=== PATIENT | female | born 1995 | race Caucasian/White ===

== ENCOUNTER → 2023-03-03 | Outpatient (CLI) | payer OTHER | END | disposition home or self-care (01) | LOC: LAB 16:07 | PROVIDERS: ATTEND Preventive Medicine Preventive Medicine/Occupational Environmental Medicine | DX: S61.231A Puncture wound without foreign body of left index finger without damage to nail, initial encounter (principal); Z77.21 Contact with and (suspected) exposure to potentially hazardous body fluids; W46.1XXA Contact with contaminated hypodermic needle, initial encounter; Y93.89 Activity, other specified; Y92.89 Other specified places as the place of occurrence of the external cause; Y99.8 Other external cause status | CPT/HCPCS: 36415; 86703; 86706; 86803; 87340 ==

== ENCOUNTER → 2024-01-12 | Outpatient (CLI) | payer OTHER | END | disposition home or self-care (01) | LOC: LAB 10:29 | PROVIDERS: ATTEND Obstetrics & Gynecology | DX: N91.2 Amenorrhea, unspecified (principal) | CPT/HCPCS: 36415; 84144; 84702 ==

== ENCOUNTER → 2024-02-16 | Outpatient (CLI) | payer OTHER ==
[2024-02-16 11:32] LABS: Basophils # (auto) 0 10 ^3/uL (0-0.2); Basophils % (auto) 0.3 % (0.0-2.0); Eosinophils # (auto) 0 10 ^3/uL (0-0.8); Eosinophils % (auto) 0.2 % (0.0-7.0); Hematocrit 40.7 % (36.0-46.0); Lymphocytes # (auto) 1.7 10 ^3/uL (0.4-5.4); Lymphocytes % (auto) 16.8 % (10.0-50.0); Mean Corpuscular Hemoglobin 29.4 pg (28.0-32.0); Mean Corpuscular Hgb Conc. 34.4 g/dL (32.0-36.0); Mean Corpuscular Volume 85.3 fL (80.0-100.0); Monocytes # (auto) 0.6 10 ^3/uL (0-1.3); Monocytes % (auto) 5.8 % (0.0-12.0); Neutrophils # (auto) 7.9 10 ^3/uL (1.6-8.6); Neutrophils % (auto) 76.9 % (37.0-80.0); Platelet Count (auto) 275 10^3/uL (140-450); Red Blood Cells 4.77 10^6/uL (4.0-5.20); Red Cell Distribution Width 13.2 % (11.8-14.3); White Blood Cell 10.3 10^3/uL (4.4-10.8)
[2024-02-16 12:02] LABS: Amphetamine Screen, Urine Neg (NEGATIVE); Barbiturate Scree,Urine Neg (NEGATIVE); Benzodiazephine Screen, Urine Neg (NEGATIVE); Cannabinoid Screen, Urine Neg (NEGATIVE); Cocaine Screen, Urine Neg (NEGATIVE); Opiate Scree,Urine Neg (NEGATIVE); Phencyclidine Screen, Urine Neg (NEGATIVE)
[2024-02-17 08:06] LABS: RPR Non Reactive (Non Reactive)
[2024-02-17 21:06] LABS: Chlamydia Trachomatis, NAA Negative (Negative); Neisseria gonorrhoeae, NAA Negative (Negative)
== END | disposition home or self-care (01) ==
LOC: LAB 10:42
PROVIDERS: ATTEND Obstetrics & Gynecology
DX: Z31.430 Encounter of female for testing for genetic disease carrier status for procreative management (principal); Z34.80 Encounter for supervision of other normal pregnancy, unspecified trimester; Z20.09 Contact with and (suspected) exposure to other intestinal infectious diseases; N39.0 Urinary tract infection, site not specified
CPT/HCPCS: 36415; 80307; 83036; 84144; 84702; 85025; 86592; 86703; 86762; 86850; 86900; 86901; 87086; 87340

== ENCOUNTER → 2024-06-20 | Outpatient (CLI) | payer OTHER ==
[2024-06-20 06:53] LABS: Basophils # (auto) 0 10 ^3/uL (0-0.2); Basophils % (auto) 0.4 % (0.0-2.0); Eosinophils # (auto) 0.1 10 ^3/uL (0-0.8); Eosinophils % (auto) 0.8 % (0.0-7.0); Hematocrit 36.1 % (36.0-46.0); Lymphocytes # (auto) 1.6 10 ^3/uL (0.4-5.4); Lymphocytes % (auto) 18.4 % (10.0-50.0); Mean Corpuscular Hemoglobin 28.2 pg (28.0-32.0); Mean Corpuscular Hgb Conc. 33.4 g/dL (32.0-36.0); Mean Corpuscular Volume 84.6 fL (80.0-100.0); Monocytes # (auto) 0.7 10 ^3/uL (0-1.3); Monocytes % (auto) 7.6 % (0.0-12.0); Neutrophils # (auto) 6.4 10 ^3/uL (1.6-8.6); Neutrophils % (auto) 72.8 % (37.0-80.0); Platelet Count (auto) 197 10^3/uL (140-450); Red Blood Cells 4.26 10^6/uL (4.0-5.20); Red Cell Distribution Width 13.4 % (11.8-14.3); White Blood Cell 8.7 10^3/uL (4.4-10.8)
[2024-06-20 07:17] LABS: RUBELLA Positive
== END | disposition home or self-care (01) ==
LOC: LAB 06:12
PROVIDERS: ATTEND Obstetrics & Gynecology
DX: Z34.00 Encounter for supervision of normal first pregnancy, unspecified trimester (principal)
CPT/HCPCS: 36415; 82951; 83036; 85025; 86762; 87086

== ENCOUNTER → 2024-08-14 | Outpatient (CLI) | payer OTHER ==
[2024-08-14 11:14] LABS: Hematocrit 36.1 % (36.0-46.0); Hemoglobin 11.9 g/dL (12.2-16.2); Mean Corpuscular Hemoglobin 27.5 pg (28.0-32.0); Mean Corpuscular Volume 83.6 fL (80.0-100.0); Nucleated Red Blood Cells % 0.1 %
[2024-08-16 05:08] LABS: Chlamydia Trachomatis, NAA Negative (Negative); Neisseria gonorrhoeae, NAA Negative (Negative)
== END | disposition home or self-care (01) ==
LOC: LAB 11:03
PROVIDERS: ATTEND Obstetrics & Gynecology
DX: Z34.80 Encounter for supervision of other normal pregnancy, unspecified trimester (principal); Z3A.00 Weeks of gestation of pregnancy not specified
CPT/HCPCS: 36415; 85025; 86780

== ENCOUNTER 2024-09-03 03:04 | Inpatient (IN) | payer OTHER ==
[2024-09-01 11:00] LABS: Hematocrit 35.8 % (36.0-46.0); Hemoglobin 11.9 g/dL (12.2-16.2); Mean Corpuscular Hemoglobin 27.6 pg (28.0-32.0); Mean Corpuscular Volume 83.3 fL (80.0-100.0); Nucleated Red Blood Cells % 0.1 %
[2024-09-01 11:13] LABS: INR 0.92 (0.9-1.15); Partial Thromboplastin Time 26.0 SEC (24.5-34.5); Prothrombin Time 9.8 sec (9.3-11.8)
[2024-09-01 11:16] LABS: Alanine Aminotransferase 13 U/L (7-40); Albumin 3.9 g/dL (3.2-4.8); Alkaline Phosphatase 120 U/L (46-116); Anion Gap 9 (5-15); BUN/Creatinine Ratio 9.3 (10.0-20.0); Bilirubin, Total 0.6 mg/dL (0.2-1.0); Blood Urea Nitrogen 5 mg/dL (9-23); Calcium 9.8 mg/dL (8.7-10.4); Carbon Dioxide 24 mmol/L (20-31); Chloride 105 mmol/L (98-107); Glucose 74 mg/dL (74-106); Potassium 4.1 mmol/L (3.5-5.1); Sodium 138 mmol/L (136-145); Total Protein 6.0 g/dL (5.7-8.2)
[2024-09-01 11:42] LABS: Amphetamine Screen, Urine Neg (NEGATIVE); Barbiturate Scree,Urine Neg (NEGATIVE); Benzodiazephine Screen, Urine Neg (NEGATIVE); Cannabinoid Screen, Urine Neg (NEGATIVE); Cocaine Screen, Urine Neg (NEGATIVE); Opiate Scree,Urine Neg (NEGATIVE); Phencyclidine Screen, Urine Neg (NEGATIVE)
[2024-09-01 18:03] LABS: Urine Protein, UAD Negative (Negative)
--- NOTE | 2024-09-02 09:23 | DVHHP ---
ADMIT DATE: 09/03/2024 CHIEF COMPLAINT: Urgent repeat section. HISTORY OF PRESENT ILLNESS: The patient is a 3, para 2-0-1-2 female admitted with due date of 09/11, admitted for repeat section. The patient has had two prior sections. Requesting repeat section. PAST MEDICAL HISTORY: None. PAST SURGICAL HISTORY: . SOCIAL HISTORY: None. FAMILY HISTORY: None. OBSTETRIC/GYNECOLOGIC HISTORY: Two sections, one termination. ALLERGIES: No known drug allergies. REVIEW OF SYSTEMS: Consistent with HPI. PHYSICAL EXAMINATION: VITAL SIGNS: Stable, afebrile. HEENT: Within normal limits. CARDIOVASCULAR: Regular rate and rhythm. LUNGS: Clear to auscultation. BREASTS: Symmetrical. No masses. ABDOMEN: Gravid. Positive heart. PELVIC: . EXTREMITIES: No clubbing, cyanosis, edema. IMPRESSION: * Intrauterine at 39 weeks. * Previous section x 2. * Desires repeat section. PLAN: Repeat section. Informed consent obtained. Risks and complications of surgery including infection, bleeding, hematoma formation, injury to bowel or bladder, surrounding organs, possibility of DVT, pulmonary embolism, risks of anesthesia discussed with the patient. Alternatives reviewed. All questions answered. The patient fully understands. She wishes to proceed with planned procedure. DO HÉCTOR Sin/MARIA T/GIANFRANCO TID: [id number] RECEIPT: [id number]
[~2024-09-03] VITALS: Ht 167.6 cm; Wt 77.6 kg
[2024-09-03] VITALS (16 sets, daily range): BP systolic 86–107; BP diastolic 51–67; PULSE 50–83; RESP 14–18; TEMP 97.7–98.1; O2SAT 94–100
[2024-09-03] MEDS ORDERED: ceFAZolin 2 GM/D5W50ml 50 ML IV ONE (04:15)
[2024-09-03] MEDS: METOCLOPRAMIDE HCL 5MG/ml INJ 2ml VIAL IV ONE ×2 (04:15→08:15)
[2024-09-03] MEDS: SODIUM CITR/CITRIC ACID ORAL SOLN 30 ML PO ONE (04:15)
[2024-09-03] MEDS: LACTATED RINGER'S 1,000 ML IV ONE (06:16)
[2024-09-03] MEDS: LACTATED RINGER'S 1,000 ML IV SCH (06:17)
[2024-09-03] MEDS ORDERED: PHENYLEPHRINE HCL 10 MG/ML VL ONE (06:20)
[2024-09-03] MEDS ORDERED: fentaNYL CITRATE 0 ML ONE (06:20)
[2024-09-03] MEDS ORDERED: OXYTOCIN 10UNIT/ML 1ML VIAL ONE (06:20)
[2024-09-03] MEDS ORDERED: MIDAZOLAM HCL 2MG/2ML 2ml VIAL (1mg/ml) ONE (06:20)
[2024-09-03] MEDS ORDERED: ETOMIDATE (2MG/ML) 20ML VIAL IV ONE (06:20)
[2024-09-03] MEDS ORDERED: PROPOFOL 10 MG/ML 20 ML IV ONE (06:20)
[2024-09-03] MEDS ORDERED: BUPIVACAINE/DEXTROSE MPF 0.75% 2 ML AMP IT ONE (06:21)
[2024-09-03] MEDS ORDERED: MORPHINE SULF PF 5 MG/10 ML VIAL ONE (06:21)
[2024-09-03] MEDS ORDERED: fentaNYL CITRATE 100 MCG/2 ML VL ONE (06:21)
[2024-09-03] MEDS: TETRACAINE 1% INJ 2 ML VIAL IJ ONE (06:23)
[2024-09-03] MEDS: SUCCINYLCHOLINE CHLORIDE 20 MG/ML 10ML VIAL IV ONE (06:23)
[2024-09-03] MEDS: ceFAZolin 2 GM/D5W100ml 100 ML IV ONE (07:00)
[2024-09-03] MEDS: CEFAZOLIN IV ONE (07:00)
[2024-09-03] MEDS: DEXTROSE IV ONE (07:00)
[2024-09-03] MEDS ORDERED: ceFAZolin 1GM/50ML 50 ML IV SCH (07:15)
[2024-09-03] MEDS ORDERED: ONDANSETRON HCL 4 MG/2 ML VIAL IV PRN (07:15)
[2024-09-03] MEDS: LACT. RINGERS/OXYTOCIN 20UNITS 1,000 ML IV ONE (07:15)
[2024-09-03] MEDS ORDERED: NALOXONE HCL 0.4 MG/ML VIAL IV PRN (08:15)
[2024-09-03] MEDS ORDERED: MORPHINE SULFATE INJ 2 MG/ml SYRG IV PRN (08:15)
[2024-09-03] MEDS ORDERED: MORPHINE SULFATE 4 MG/ML SYR/VIAL IV PRN (08:15)
[2024-09-03] MEDS ORDERED: HYDROmorphone HCL 2 MG/ML VL/or syr IV PRN ×2 (08:15)
[2024-09-03] MEDS ORDERED: diphenhdrAMINE HCL 50 MG/1 ML VL IV PRN (08:15)
[2024-09-03] MEDS: KETOROLAC TROMETH 30 MG/ML 1ML VIAL IV ONE (08:15)
[2024-09-03] MEDS: DIPHENOXYLATE W/ATROPINE 2.5 MG TAB PO SCH (10:00)
--- NOTE | 2024-09-03 10:16 | DVHOP2 ---
Operative Report DATE OF OPERATION:09/03/24 PREOPERATIVE DIAGNOSES: [term preg desires rcs,previous csx2] POSTOPERATIVE DIAGNOSES: [same] OPERATION PERFORMED: Repeat Section FINDINGS: [f] infant. Apgars of [9] and [9]. Weight [good] crying tone. [clear] amniotic fluid. Placenta and three-vessel were intact. Normal tubes, ovaries, and uterus. SURGEON: Meri Sanchez D.O. FLASK FITTER: microelectronics technician, millicent]. ANESTHESIOLOGIST: Bettye boyle ANESTHESIA: [Duramorph spinal, regional]. COMPLICATIONS: [none]. ESTIMATED BLOOD LOSS: [800] mL. BLOOD PRODUCTS USED: [none]. PROCEDURE IN DETAIL: The patient was taken to the operating room, placed in sitting position, and spinal was placed without difficulty. She was then prepped and draped in a sterile fashion. A low Pfannenstiel incision was made scapel. At this point, it was carried down through the rectus fascia, nicked in the midline, and carried laterally. The rectus muscles were in the midline. Peritoneum was identified and entered with sharp dissection. Vesicouterine peritoneum was taken off the lower uterine segment. A lower uterine transverse incision was made with a scalpel down the chorionic membranes, ruptured with hemostat. was in vertex position. One hand was placed in the lower uterine segment. Head was essentially delivered spontaneously. Nose and mouth were bulb suctioned. Shoulders and torso were delivered without difficulty. Again, pharynx, nose, and mouth were re-suctioned with vigorous crying tone. Cord was cut. The infant was handed off to the awaiting Respiratory. At this point, umbilical blood sample was taken. Placenta was removed. Uterus was exteriorized, cleared off all clots and debris, irrigated, and closed with a double layer of 0-Vicryl. The vesicouterine peritoneum was incorporated into this closure. We had complete hemostasis. EBL was [800] mL. The instrument, lap, and sponge count was correct x1. The uterus was placed back into the peritoneum. The peritoneal cavity was re-inspected and the lower uterine incision with good hemostasis. We closed the peritoneum with running continuous of 2-0 Vicryl. The Rectus Fascia was closed with 0-PDS, running continuous, looped-0. The skin was closed undermined, irrigated, and close with manan. CONDITION: The patient's and the 's condition is stable and but guarded. Visit Coding OBGYN Date of Service: Sep 03, 2024 Billing Provider: MERI SANCHEZ DO AD OPERATIONS ASSOCIATE Common Visit Codes: [id number] OBS CARE (HIGH) AD OPERATIONS ASSOCIATE Procedure Codes: [id number] DELIVERY ONLY MERI SANCHEZ DO Sep 03, 2024 10:16
--- NOTE | 2024-09-03 10:21 | POSTOP ---
Post-Operative Note Post-Operative Note Preop Diagnosis term preg desire srcs Postop Diagnosis: same Operation performed rcs Specimen baby girl.apgars 9-9 Anesthesia: Regional Anesthesiologist: massiel Blood Loss(fluid mgmt) 800ml Surgeon Meri Sanchez Fish And Game Warden victor hugo Complications & Mgmt none Date 09/03/24 Time 10:16 Visit Coding OBGYN Date of Service: Sep 03, 2024 Billing Provider: MERI SANCHEZ DO [employer] Common Visit Codes: [id number] OBS CARE (HIGH) [employer] Procedure Codes: [id number] DELIVERY ONLY MERI SANCHEZ DO Sep 03, 2024 10:21
[2024-09-03] MEDS ORDERED: IBUP-1456 PO (10:31)
[2024-09-03] MEDS ORDERED: DOCU-94 PO (10:31)
[2024-09-03] MEDS ORDERED: HYDR-4072 PO (10:31)
[2024-09-03] MEDS: ceFAZolin 1GM/50ML 50 ML IV SCH (14:39)
[2024-09-03] MEDS: ACETAMINOPHEN IV 1000 MG/100ML (10MG/ML) IV PRN (16:25)
[2024-09-03 21:27] LABS: Hematocrit 33.8 % (36.0-46.0); Hemoglobin 11.1 g/dL (12.2-16.2); Mean Corpuscular Hemoglobin 27.2 pg (28.0-32.0); Mean Corpuscular Volume 83.3 fL (80.0-100.0); Nucleated Red Blood Cells % 0.0 %
[2024-09-04] VITALS (12 sets, daily range): BP systolic 85–101; BP diastolic 51–63; PULSE 60–99; RESP 16–18; TEMP 97.9–98.6; O2SAT 96–99
--- NOTE | 2024-09-04 00:27 | DVHPN2 ---
Progress Note Date Seen: Sep 04, 2024 Subjective - S: bleeding is less, advancing diet as tolerated, denies lightheaded/dizziness, pain well controlled with medications, soler in place, no flatus, no BM yet, not ambulating yet, well vital signs Vital Sign Date Time Temp Pulse Resp B/P (MAP) Pulse Ox O2 Delivery O2 Flow Rate FiO2 09/04/24 00:00 62 96 09/03/24 23:00 97.7 16 97.7 09/03/24 19:00 Room Air 0.0 09/03/24 15:00 100/61 (74) 09/03/24 08:11 100 Total Intake and Output 09/03/24 09/03/24 09/04/24 15:00 23:00 07:00 Output Total 3750 ml 450 ml Balance -3750 ml -450 ml medications Current Medications Medications Dose Ordered Sig/Isabella Route Start Time Stop Time Status Last Admin Dose Admin Lactated Ringer's 1,000 ml @ 125 mls/hr Q8H IV 09/03/24 04:15 09/03/24 23:07 125 MLS/HR Ondansetron HCl 4 mg Q4HP PRN IV 09/03/24 07:15 Diphenhydramine HCl 25 mg Q4HP PRN IV 09/03/24 08:15 Cefazolin Sodium 50 ml @ 100 mls/hr Q8H IV 09/03/24 15:00 09/04/24 07:29 09/03/24 22:45 100 MLS/HR Acetaminophen 1,000 mg Q8HPRN PRN IV 09/03/24 08:30 09/04/24 06:01 09/03/24 16:25 1,000 MG laboratory and microbiology Laboratory Tests 09/03/24 21:13 09/01/24 10:33 Test 09/01/24 10:33 Range/Units Serum Glucose 74 74-106 mg/dL Objective O: VSS Chest: heart sounds normal and lung sounds clear bilaterally Abd: soft, non-tender, fundus at U/firm/midline, active bowel sounds, Incision: steri strips open to air, clean/dry/intact,edges well approximated Ext: Non-tender, No edema, 2+ BLE DTRs Lochia: minimal See lab results Problems(with codes): (1) S/P repeat low transverse (2) Precipitous drop in hematocrit Assessment/Plan A/P: 29yo now PPD#1 s/p repeat -continue routine postop PP care Plan discussed with: Patient, Spouse Visit Coding OBGYN Date of Service: Sep 04, 2024 Billing Provider: ANGELICA CHAVEZ CNM BLENDING PLANT OPERATOR Common Visit Codes: [id number] INP/OBS CARE(HIGH) ANGELICA CHAVEZ CNM Sep 04, 2024 00:27
[2024-09-04] MEDS ORDERED: IBUP-1456 PO (00:28)
[2024-09-04] MEDS ORDERED: PREN-96 PO (00:28)
[2024-09-04 07:38] LABS: Hematocrit 29.8 % (36.0-46.0); Hemoglobin 9.8 g/dL (12.2-16.2); Mean Corpuscular Hemoglobin 27.6 pg (28.0-32.0); Mean Corpuscular Volume 83.5 fL (80.0-100.0); Nucleated Red Blood Cells % 0.0 %
[2024-09-04] MEDS ORDERED: DOCUSATE SOD 100 MG CAP PO PRN (08:30)
[2024-09-04] MEDS ORDERED: HYDROcodone-ACET 5/325MG TAB PO PRN ×2 (08:30)
[2024-09-04] MEDS: IBUPROFEN 800 MG TAB PO PRN (09:33)
[2024-09-04] MEDS: SIMETHICONE 80 MG CHEWABLE TABLET PO SCH (15:04)
[2024-09-04] MEDS: ACETAMINOPHEN 325 MG TAB PO PRN (15:26)
--- NOTE | 2024-09-05 00:30 | DVHPN2 ---
Progress Note Date Seen: Sep 05, 2024 Subjective S: bleeding is less, eating food without issues, denies lightheaded/dizziness, pain well controlled with oral medications, no concerns with urinating, passing flatus, no BM yet, ambulating well, formula feeding vital signs Vital Sign Date Time Temp Pulse Resp B/P (MAP) Pulse Ox O2 Delivery O2 Flow Rate FiO2 09/04/24 23:00 98.6 74 18 99/56 (70) 97 98.6 09/04/24 19:30 Room Air 09/04/24 07:15 0.0 09/03/24 08:11 100 Total Intake and Output 09/04/24 09/04/24 09/05/24 15:00 23:00 07:00 Output Total 1500 ml Balance -1500 ml medications Current Medications Medications Dose Ordered Sig/Isabella Route Start Time Stop Time Status Last Admin Dose Admin Ondansetron HCl 4 mg Q4HP PRN IV 09/03/24 07:15 Docusate Sodium 100 mg Q12HR PRN PO 09/04/24 08:30 Dimethicone 80 mg QID PO 09/04/24 12:00 09/04/24 21:33 80 MG Ibuprofen 800 mg Q8HP PRN PO 09/04/24 08:30 09/04/24 22:39 800 MG Acetaminophen/ Hydrocodone Bitart 1 tab Q4HPRN PRN PO 09/04/24 08:30 Acetaminophen/ Hydrocodone Bitart 2 tab Q4HPRN PRN PO 09/04/24 08:30 Acetaminophen 650 mg Q6HP PRN PO 09/04/24 15:00 09/04/24 15:26 650 MG laboratory and microbiology Laboratory Tests 09/04/24 07:19 09/01/24 10:33 Test 09/01/24 10:33 Range/Units Serum Glucose 74 74-106 mg/dL Objective O: VSS Chest: heart sounds normal and lung sounds clear bilaterally Abd: soft, non-tender, fundus 1-U/firm/midline, active bowel sounds, no rebound or guarding Incision: steri strips open to air, clean/dry/intact, edges well approximated Ext: Non-tender, No edema, 2+ BLE DTRs Lochia: minimal See lab results Problems(with codes): (1) Precipitous drop in hematocrit (2) S/P repeat low transverse Assessment/Plan A: 29yo now PPD#1 s/p repeat Rh+ Rubella Immune Formula feeding P: D/C home today Rx sent to pharmacy precautions and preeclampsia warning signs reviewed F/U with [facility] office in 1 week Plan discussed with: Patient, Spouse Visit Coding OBGYN Date of Service: Sep 05, 2024 Billing Provider: ANGELICA CHAVEZ CNM PRESS MANAGER Common Visit Codes: [id number] INP/OBS CARE(HIGH) ANGELICA CHAVEZ CNM Sep 05, 2024 00:30
--- NOTE | 2024-09-05 00:31 | DVHDS2 ---
Obstetrics Discharge Summary Obstetrics Discharge Summary Date of Admission: Sep 03, 2024 Date of Discharge: Sep 05, 2024 Reason For Admission: Section (Repeat) Procedures: NST Intrapartum Procedures: (ltcs) Procedures: Antibiotics, Hct/date: (09/04/24), Hgb/date: (09/04/24) Operative Complicat: None Discharge Diagnosis: Term -Delivered Discharge Information: Activity (as tolerated, no heavy lifting and nothing in the vagina for 6 weeks), Diet (Routine), Medications (Rx sent), Instructions (Routine), Discharge to (Home), Accompanied by (partner), Discarge date (09/05/24) Visit Coding OBGYN Date of Service: Sep 05, 2024 Billing Provider: ANGELICA CHAVEZ CNM PUTAWAY DRIVER Common Visit Codes: [id number] DISCH DAY <30MIN ANGELICA CHAVEZ CNM Sep 05, 2024 00:31
[2024-09-05] MEDS ORDERED: FERR30CA PO (00:33)
[2024-09-05 03:00] VITALS: BP 90/46; PULSE 60; RESP 16; TEMP 97.9; O2SAT 95
== END 2024-09-05 08:42 | disposition home or self-care (01) | DRG 787 ==
LOC: LDRP 03:57 → EEVIPCON 03:57 → LDRP 07:21 → NUR 09-04 19:46 → LDRP 09-04 19:53
PROVIDERS: ADMIT Obstetrics & Gynecology; ATTEND Obstetrics & Gynecology
PROC: 10D00Z1 Extraction of Products of Conception, Low, Open Approach (ICD-10-PCS; principal; 2024-09-03 06:59)
DX: O34.211 Maternal care for low transverse scar from previous cesarean delivery (principal); R71.0 Precipitous drop in hematocrit; Z37.0 Single live birth; Z3A.39 39 weeks gestation of pregnancy
CPT/HCPCS: 36415; 59025; 80053; 80307; 81001; 85025; 85610; 85730; 86780; 86850; 86900; 86901; 94760; 94762; 96360; 96361; G0378; J0131; J0330; J1100; J2250; J2704

== ENCOUNTER → 2024-10-17 | Outpatient (CLI) | payer OTHER ==
[~2024-10-17] MED LIST: DOCU-94 PO; FERR30CA PO; HYDR-4072 PO; IBUP-1456 PO; PREN-96 PO
[2024-10-17 10:36] LABS: Hematocrit 42.1 % (36.0-46.0); Hemoglobin 13.9 g/dL (12.2-16.2); Mean Corpuscular Hemoglobin 27.3 pg (28.0-32.0); Mean Corpuscular Volume 82.8 fL (80.0-100.0); Nucleated Red Blood Cells % 0.0 %
[2024-10-17 11:21] LABS: Alanine Aminotransferase 25 U/L (7-40); Albumin 4.6 g/dL (3.2-4.8); Alkaline Phosphatase 66 U/L (46-116); Anion Gap 9 (5-15); BUN/Creatinine Ratio 17.8 (10.0-20.0); Blood Urea Nitrogen 13 mg/dL (9-23); Calcium 9.5 mg/dL (8.7-10.4); Carbon Dioxide 26 mmol/L (20-31); Chloride 106 mmol/L (98-107); Potassium 4.2 mmol/L (3.5-5.1); Sodium 141 mmol/L (136-145); Total Protein 7.2 g/dL (5.7-8.2); Triglycerides 66 mg/dL (< 150)
[2024-10-17 11:22] LABS: Bilirubin, Total 0.6 mg/dL (0.2-1.0)
[2024-10-17 11:23] LABS: Cholesterol 230 mg/dL (< 200); Glucose 73 mg/dL (74-106); HDL Cholesterol 72 mg/dL (40-59)
== END | disposition home or self-care (01) ==
LOC: LAB 09:49
PROVIDERS: ATTEND Nurse Practitioner Family
DX: I10 Essential (primary) hypertension (principal); F41.9 Anxiety disorder, unspecified; Z00.00 Encounter for general adult medical examination without abnormal findings
CPT/HCPCS: 36415; 80053; 80061; 84443; 85025